=== PATIENT | female | born 1995 | race Hispanic/Latino ===

== ENCOUNTER 2021-03-05 13:33 | Emergency (ER) | payer SELFPAY ==
[~2021-03-05] VITALS: Ht 165.1 cm; Wt 77.1 kg
[2021-03-05 14:15] LABS: APPEARANCE,URINE Cloudy (CLEAR); BILIRUBIN,URINE Negative (NEGATIVE); COLOR,URINE Yellow (YELLOW); GLUCOSE, URINE (UA) Negative (NEGATIVE); KETONES,URINE Negative (NEGATIVE); LEUKOCYTE ESTERASE ,URINE Moderate (NEGATIVE); NITRATE,URINE Negative (NEGATIVE); OCCULT BLOOD,URINE Trace (NEGATIVE); PROTEIN,URINE Negative (NEGATIVE)
[2021-03-05 14:17] LABS: HCG,QUAL RESULT NEGATIVE (NEGATIVE)
[2021-03-05 14:25] LABS: BACTERIA,URINE Few /HPF (None Seen); MUCUS,URINE Few LPF (None Seen); SQUAMOUS EPITHELIAL CELL,UR Few /HPF (0-2)
[2021-03-05] MEDS ORDERED: CEFTRIAXONE 1G VIAL IM STA (14:36)
[2021-03-05 14:45] VITALS: BP 108/61
[2021-03-05] MEDS ORDERED: CEPH500B PO (14:53)
[2021-03-05] MEDS ORDERED: PHEN-847 PO (14:53)
[2021-03-05] MEDS ORDERED: LIDOCAINE HCL-MPF 1% 2ML VIAL ONE (15:04)
[2021-03-05] MEDS ORDERED: CEFTRIAXONE 1G VIAL ONE (15:04)
[2021-03-05] MEDS ORDERED: 0.9%NACL 100ML 100 ML ONE (15:42)
[2021-03-05] MEDS ORDERED: PHENAZOPYRIDINE HCL 200 MG TABLET PO SCH (15:48)
[2021-03-06] MEDS ORDERED: IBUP-1556 PO (23:28)
== END 2021-03-05 15:24 | disposition home or self-care (01) ==
LOC: EDH 13:33
DX: N39.0 Urinary tract infection, site not specified (principal)
CPT/HCPCS: 81001; 81025; 87088; 96372; 99283; J0696; J3490

== ENCOUNTER 2021-03-06 22:37 | Emergency (ER) | payer SELFPAY ==
[~2021-03-06] VITALS: Ht 177.8 cm; Wt 72.6 kg
[~2021-03-06 22:37] MED LIST: CEPH500B PO; PHEN-847 PO
[2021-03-06] MEDS ORDERED: IBUP-1556 PO (23:28)
[2021-03-06] MEDS ORDERED: KETOROLAC 60 MG VIAL (30MG/ML) IM ONE (23:30)
[2021-03-06 23:37] VITALS: BP 118/72
== END 2021-03-07 00:01 | disposition home or self-care (01) ==
LOC: EDH 22:37
DX: R10.2 Pelvic and perineal pain (principal); Z98.51 Tubal ligation status; Z90.49 Acquired absence of other specified parts of digestive tract
CPT/HCPCS: 96372; 99283; J1885